=== PATIENT | female | born 1970 ===

== ENCOUNTER 2019-01-13 10:27 | Emergency (ER) | payer OTHER ==
[~2019-01-13] VITALS: Ht 175.3 cm; Wt 70.3 kg
[2019-01-13] MEDS ORDERED: LIALDA1.2 GM (10:45)
[2019-01-13] MEDS ORDERED: BENTYL10 MG/1 ML (10:46)
[2019-01-13] MEDS ORDERED: PROTONIX40 M1 (10:46)
[2019-01-13] MEDS ORDERED: HYOSCYAMINE0.125 M1 (10:47)
== END 2019-01-13 14:25 | disposition home or self-care (01) ==
LOC: ER 10:27
DX: R10.2 Pelvic and perineal pain (principal)